=== PATIENT | female | born 1965 | race African-American/Black ===

== ENCOUNTER 2016-09-11 12:31 | Day surgery (SDC) | payer BC ==
[~2016-09-11] VITALS: Ht 172.7 cm; Wt 109.3 kg
[2016-09-11 14:17] VITALS: Ht 172.7 cm; Wt 109.3 kg
[2016-09-11] MEDS ORDERED: ATEN50TA PO (14:26)
[2016-09-11] MEDS ORDERED: LOSA1TAB19 PO (14:26)
[2016-09-11] MEDS ORDERED: MIDAZOLAM 1 MG/ML 2 ML INJ ONE (15:00)
[2016-09-11] MEDS ORDERED: PROPOFOL 20 ML ONE ×2 (15:00→15:43)
[2016-09-11] MEDS ORDERED: LIDOCAINE 2% (SDV) 5 ML INJ ONE (15:00)
[2016-09-11 15:46] VITALS: BP 142/68; PULSE 95; RESP 20
[2016-09-11 16:01] VITALS: BP 125/59; RESP 20
--- NOTE | 2016-09-15 09:42 | GILP ---
DATE OF PROCEDURE: 09/11/2016 PROCEDURE PERFORMED: Colonoscopy. PREOP DIAGNOSIS: Screening colonoscopy. POSTOP DIAGNOSES: 1. Colonoscopy all the way to the cecum. 2. Diverticulosis of the colon. 3. Internal hemorrhoids. 4. No colon neoplasm was identified. SURGEON: Markus Wright MD INDICATION: Ms Desi White is a 51-year-old female patient who was scheduled for screening colonoscopy. The procedure and possible complications were well explained to the patient. The patient understood and consented to the procedure. DESCRIPTION OF PROCEDURE: Under influence of anesthesia, the colonoscope was carefully introduced in the rectum. Under direct vision it was advanced all the way to the cecum. Findings: Patient had diverticulosis of the colon. She also had internal hemorrhoids. No colon neoplasm was identified. The patient tolerated the procedure very well. There was no complication from the procedure. At the end of procedure she was awake with stable vital signs and she was discharged home in care of her family. IMPRESSION: 1. Colonoscopy all the way to the cecum. 2. Diverticulosis of the colon. 3. Internal hemorrhoids. 4. No colon neoplasm was identified. PLAN: 1. High-fiber diet. 2. Next screening colonoscopy in 10 years. Dictated By: MD DIEGO Keen/laney/yuan /Document#: [id number]
== END 2016-09-11 16:40 | disposition home or self-care (01) ==
LOC: GIL 12:31
PROVIDERS: ATTEND Internal Medicine Gastroenterology
DX: Z12.11 Encounter for screening for malignant neoplasm of colon (principal); K57.90 Diverticulosis of intestine, part unspecified, without perforation or abscess without bleeding; K64.8 Other hemorrhoids; I10 Essential (primary) hypertension; E66.9 Obesity, unspecified; Z68.35 Body mass index [BMI] 35.0-35.9, adult
CPT/HCPCS: 45378; J2250